=== PATIENT | male | born 1960 | race Caucasian/White ===

== ENCOUNTER 2023-10-05 11:59 | Outpatient (CLI) | payer MEDICAID ==
--- NOTE | 2023-10-06 08:04 | Ultrasound Report ---
PROCEDURE: Soft Tissue Head or Neck INDICATIONS: LYMPHOADENOPATHY TECHNIQUE: Real-time scanning was performed of the neck, with image documentation. COMPARISON: None FINDINGS: Right neck level 1 cervical lymph node measuring 2.9 x 2.7 x 2.3 cm. The node appears thickened with effacement of the fatty hilum. IMPRESSION: Abnormal right cervical lymph node measuring 2.[address] neck with IV contrast for further evaluation. Ultrasound-guided biopsy is also recomme nded. Reviewed by: Javan Gallagher MD on 10/06/2023 8:03 AM PDT Approved by: Javan Gallagher MD on 10/06/2023 8:03 AM PDT Station ID: [id number]
== END 2023-10-05 12:00 | disposition home or self-care (01) ==
LOC: DI 11:59
DX: R59.0 Localized enlarged lymph nodes (principal)

== ENCOUNTER 2023-10-07 06:20 | Emergency (ER) | payer MEDICAID ==
[2023-10-07 06:59] LABS: BASOPHILS # (AUTO) 0.1 10^3/uL (0.0-0.1); BASOPHILS % (AUTO) 1.1 %; EOSINOPHILS # (AUTO) 0.2 10^3/uL (0.0-0.7); EOSINOPHILS % (AUTO) 1.7 %; HCT - HEMATOCRIT 47.9 % (42.0-52.0); LYMPHOCYTES % (AUTO) 17.3 %; MEAN CORPUSCULAR HEMOGLOBIN 31.3 pg (27.0-31.0); MEAN CORPUSCULAR HGB CONC 33.4 g/dL (32.0-36.0); MEAN CORPUSCULAR VOLUME 93.6 fL (80.0-94.0); MEAN PLATELET VOLUME 9.7 fL (7.4-11.4); MONOCYTES # (AUTO) 0.5 10^3/uL (0.0-1.0); MONOCYTES % (AUTO) 4.2 %; NEUTROPHILS # (AUTO) 8.6 10^3/uL (1.5-6.6); NEUTROPHILS % (AUTO) 75.3 %; PLT - PLATELET COUNT 222 10^3/uL (130-450); RED BLOOD COUNT 5.12 10^6/uL (4.70-6.10); RED CELL DISTRIBUTION WIDTH 13.7 % (12.0-15.0); WHITE BLOOD COUNT 11.4 x10^3/uL (4.8-10.8)
[2023-10-07 07:08] LABS: ALBUMIN 3.4 g/dL (3.2-5.5); ALBUMIN/GLOBULIN RATIO 1.2 (1.0-2.2); BILIRUBIN,TOTAL 0.5 mg/dL (0.2-1.0); CALCIUM 8.3 mg/dL (8.5-10.3); CREATININE 0.9 mg/dL (0.6-1.3); POTASSIUM 3.9 mmol/L (3.5-4.5); TOTAL PROTEIN 6.2 g/dL (6.4-8.9)
--- NOTE | 2023-10-07 07:16 | ED Physician Documentation ---
PD HPI CHEST PAIN - Stated complaint Stated Complaint: PALPITATIONS - Chief complaint Chief Complaint: Cardiac - History obtained from History obtained from: Patient - Additional information Additional information: 62-year-old gentleman with history of coronary disease, stents x 2 and anxiety presents for the evaluation mostly for anxiety. He says bit for several months due to financial issues and a new job he gets intermittent chest pressure. It is not exertional, last 15 minutes at a time, and happen several times a day. He thinks his anxiety. It is not associated with shortness of breath, dizziness, sweats, nausea, pedal edema or calf pain. He is seeing a counselor but is currently lost to follow-up because his new work hours are basically the same hours as the counselor works and so he cannot really get an appointment. He denies SI or HI. He is taking Wellbutrin and started to that for in the last few days for this. He did drive here. PD PAST MEDICAL HISTORY - Past Medical History Past Medical History: Yes Cardiovascular: Coronary artery disease - Past Surgical History Past Surgical History: Yes - Present Medications Home Medications: Ambulatory Orders Medication Instructions Recorded Confirmed Atorvastatin Calcium 40 mg PO DAILY 10/07/23 10/07/23 Isosorbide Mononitrate [Isosorbide 30 mg PO DAILY 10/07/23 10/07/23 Mononitrate ER] LORazepam [Ativan] 1 mg PO TID PRN #12 tablet 10/07/23 Trazodone HCl 100 mg PO HS 10/07/23 10/07/23 buPROPion HCL [Bupropion Xl] 150 mg PO DAILY 10/07/23 10/07/23 hydrOXYzine PAMOATE [Vistaril] 25 mg PO HS 10/07/23 10/07/23 - Allergies Allergies/Adverse Reactions: Allergies Allergy/AdvReac Type Severity Reaction Status Date / Time No Known Drug Allergies Allergy Verified 10/07/23 06:29 - Social History Does the pt smoke?: No Smoking Status: Never smoker PD ED PE NORMAL - Vitals Vital signs reviewed: Yes - General General: Alert and oriented X 3, No acute distress - Cardiac Cardiac: RRR, Other (2 out of 6 decrescendo systolic murmur heard best at the left lower sternal border which is chronic per patient.) - Respiratory Respiratory: No respiratory distress, Clear bilaterally - Abdomen Abdomen: Non tender - Extremities Extremities: No edema, No calf tenderness / cord - Neuro Neuro: Alert and oriented X 3 - Psych Psych: Normal mood Results - Vitals Vitals: Vital Signs - 24 hr 10/07/23 10/07/23 10/07/23 06:26 06:29 06:58 Temperature 35.7 C L Heart Rate 80 71 71 Respiratory 18 14 Rate Blood Pressure 136/87 H 121/84 H O2 Saturation 99 96 Oxygen O2 Source Room air - EKG (time done) 0633 EKG releavant findings:: EKG personally interpreted by author of this note. Relevant findings are: Rate: Rate (enter#) (71) Rhythm: NSR Willard: Normal Intervals: Normal GA QRS: Normal Ischemia: Other (Inferior and anterior Q waves with mildly flipped T waves in the anterior leads, no priors for comparison) Computer interpretation: Agree with computer 0649 EKG releavant findings:: EKG personally interpreted by author of this note. Relevant findings are: Rate: Rate (enter#) (71) Rhythm: NSR Willard: Normal Intervals: Normal GA Ischemia: Non specific changes (No changes from EKG #1 with anterior and inferior Q waves and flipped T waves anteriorly) Computer interpretation: Agree with computer - Labs Labs: Laboratory Tests 10/07/23 10/07/23 10/07/23 06:44 06:44 06:44 WBC 11.4 H RBC 5.12 Hgb 16.0 Hct 47.9 MCV 93.6 MCH 31.3 H MCHC 33.4 RDW 13.7 Plt Count 222 MPV 9.7 Neut # (Auto) 8.6 H Lymph # (Auto) 2.0 Freeborn # (Auto) 0.5 Eos # (Auto) 0.2 Baso # (Auto) 0.1 Absolute Nucleated RBC 0.00 Nucleated RBC % 0.0 Sodium 136 Potassium 3.9 Chloride 107 Carbon Dioxide 23 Anion Gap 6.0 BUN 16 Creatinine 0.9 Estimated GFR (MDRD) 86 L Glucose 135 H Calcium 8.3 L Total Bilirubin 0.5 AST 13 ALT 12 Alkaline Phosphatase 81 Troponin I High Sens 14.1 Total Protein 6.2 L Albumin 3.4 Globulin 2.8 Albumin/Globulin Ratio 1.2 Lipase 30 PD Medical Decision Making - ED course ED course: 62-year-old gentleman presents with chest pressure that he thinks is anxiety. His initial EKG workup demonstrates a nonischemic EKG and negative troponin. CBC and CMP were generally unremarkable as well. He was amenable to social work consult as well as telepsychiatric consult. Telepsychiatric consult recommended basically outpatient follow-up without medication specific management. progress worker saw him and gave him several resources that he needed. Departure - Departure Disposition: Home, Self Care Clinical Impression: Atypical chest pain, Anxiety Condition: Good Record reviewed to determine appropriate education?: Yes Instructions: ED Panic Attack Prescriptions: LORazepam [Ativan] 1 mg PO TID PRN #12 tablet PRN Reason: Anxiety Comments: I sent your prescription electronically to the [facility] in [place]. When you take that medication do not drink or drive with it. Use the resources given to you by the outreach and education social worker to follow-up with psychiatry, counselors, legal advice etc. Return for new or worsening symptoms. Reasonable to follow-up with your director of special services in a few days as already planned. Forms: PCP List, Activity restrictions
--- NOTE | 2023-10-07 08:04 | XRAY Report ---
PROCEDURE: Chest 1V INDICATIONS: chest pain TECHNIQUE: One view of the chest was acquired. COMPARISON: None. FINDINGS: Surgical changes and devices: None. Lungs and pleura: No pleural effusions or pneumothorax. Lungs are clear. Mediastinum: Mediastinal contours appear normal. Mild cardiomegaly. Bones and chest wall: No suspicious bony lesions. Overlying soft tissues appear unremarkable. IMPRESSION: Mild cardiomegaly. No gross infiltrates. Findings are concordant with preliminary interpretation provided by [facility]. Reviewed by: Daniel Polanco MD on 10/07/2023 8:03 AM PDT Approved by: Daniel Polanco MD on 10/07/2023 8:03 AM PDT Station ID: [id number]
--- NOTE | 2023-10-07 08:23 | TELEPSYCH PHYS NOTE ---
[facility] Telepsych Consult Consult Date: 10/07/23 Name of Referring Provider:: Dr. Norton Reason for Consult: Anxiety/Depression - Suicide Risk Sreening (ASQ Tool) In the past few weeks, have you wished you were ?: No In the past few weeks, have you felt that you or your family would be better off if you were ?: No In the past week, have you been having thoughts about killing yourself?: No Have you ever tried to kill yourself?: No - Assessment Language: Austrian Transportation Maintenance Operator Required: No Cultural, Latter-Day or Spiritual Preferences: None identified Notes: I spoke with the ED provider. Patient reports today with chest pain to the ED. It's felt that the pain is due to anxiety. He has been medically cleared. Chief Complaint: I spoke with the ED provider. He reports that José Luis came in due to chest pain. He's medically cleared and there is no obvious physical cause for his chest pain so we are being consulted for evaluation and treatment. History of Present Illness: 62 year old male with history of anxiety, panic attacks, and depression presents today for psychiatric evaluation. He reports that since his ND in 2012, he has had anxiety, panic attacks and depression. He endorses trouble concentrating. He lost his job about 6 months ago. He has had 2 panic attacks a week, sometimes more, since 2012. His therapist has been working with him to get his anxiety under enough control to return to work. He has returned to work, but he's not performing well. He would like to stop working as work is causing too much stress. He is thinking about going on disability or if possible, 'paid' FMLA. He has no other source of income, but feels that not having an income is less stressful than working at this time. Sleep has been good. Appetite has been decreased. No UDS/BAL on record. He feels hopeless, but denies any suicidal thoughts. He denies any manic or psychotic symptoms. No drug or alcohol use. No history of suicide attempts. he does not have access to a firearm. He agrees to come to the ED should SI occur. Energy and motivation are poor. He is currently working as a maintenance techinician. He's renting a room from an elderly woman and this housing may cease to exist as she needs a live in person to care for her. He broke up with his girlfriend of 7 years several months ago due to her own mental health struggles. It does not sound as if there is a great support system. He denies any history of inpatient or outpatient psychiatric treatment. He was seeing a therapist and this was helpful, however, he has not been able to continue seeing her since he started working again due to schedule conflicts. He's actively seeking out a new therapist and he does have some leads. He was recently started on a new medication for anxiety by his PCP, he can't recall the name of it. He has had past psychiatric medication trials, but he's not sure what he's tried in the past. Suicide Ideation - Homicide Ideation - Self Harm: Denies SI/HI Family Psych History/ History of suicide: none - Medication & Allergies Home Medications: Ambulatory Orders Medication Instructions Recorded Confirmed Atorvastatin Calcium 40 mg PO DAILY 10/07/23 10/07/23 Isosorbide Mononitrate [Isosorbide 30 mg PO DAILY 10/07/23 10/07/23 Mononitrate ER] Trazodone HCl 100 mg PO HS 10/07/23 10/07/23 buPROPion HCL [Bupropion Xl] 150 mg PO DAILY 10/07/23 10/07/23 hydrOXYzine PAMOATE [Vistaril] 25 mg PO HS 10/07/23 10/07/23 Allergies/Adverse Reactions: Allergies Allergy/AdvReac Type Severity Reaction Status Date / Time No Known Drug Allergies Allergy Verified 10/07/23 06:29 - Drug & Alcohol History Does patient have Drug/ETOH history or addictive behavior?: No Use: Uses substance without health or social issues: NONE - Trauma Does the patient have a history of trauma, abuse, neglect or explotation?: No - Personal Information Does the patient have a history or present tendencies for violence?: None Does patient have any Legal Charges or Investigations?: No Environment & Living Situation - Social, Peer-Group (Note): At home - Medical History Cardiovascular: reports: Coronary artery disease - Mental Status Exam Appearance and Attire: casually groomed; attire not visible on camera; poor eye contact Attitude and Behavior: Cooperative Speech: Normal rate, volume and quantity Affect and Mood: Depressed and anxious mood; affect is depressed Association and Thought Process: slowed thought process at times; linear and organized Thought Content: denies SI/HI; no paranoia/delusions Perception: Denies AVH Sensorium, memory and orientation: alert and oriented x 3; memory seems somewhat impaired- it's not clear if this is due to recent panic attack, depression, or anxiety versus cognitive deficits. Intellectual - Cognitive functioning: average Insight and Judgement: intact/intact Emotional and Behavioral Functioning: no agitation Ability to Self-Care: WNL - Personal Goals Short-term Goals: Symptom alleviation; replace income with some sort of disability pay - Risk/Protective Factors Risk Factors: Trigger events leading to humiliation, shame and/or despair, Inadequate social supports Protective Factors / Internal: Fear of or the actual act of killing self, Identifies reasons for living Protective Factors / External: Engaged in work or school - Plan Impression/Risk Assessment: 62 year old with late onset of depression, anxiety, and panic attacks following a ND in 2012 presents today for evaluation. He is not suicidal, homicidal, manic or psychotic. Main complaints are anxiety, depression and panic attacks. He has been having at least panic attacks twice a week for the past several years. He is under the care of his PCP. He is seeking a new therapist. He is not meeting any criteria for inpatient psychiatric admission at this time. Treatment - Therapy Recommendations: Referral to outpatient psychiatry. He would benefit from a social media marketing specialist/case management consultation to advise him on social media editor in the community and he's not clear as to how to apply for disability. He should return to the ED with suicidal ideation or worsening symptoms. Please give him the [phone] crisis line number. Pharmacological Recommendations: He is not sure about what past medication trials he has had and he's not clear as to what medication he's currently taking. Discussed with him that when he meets with psychiatry, he will need to gather this information. He will follow up with his PCP as a new medication for anxiety was just started. - Time Spent & Provider Location Telepsych consultation conducted via videoconferencing: Yes (2 way audio visual communication) List names and roles of persons who participated in consult: Claudette Jackson APRN; José Luis Patricia (patient) Telepsych Provider Location: Home office Time Spent (Minutes): 55
[2023-10-07 10:02] VITALS: BP 136/81; O2SAT 98
== END 2023-10-07 09:55 | disposition home or self-care (01) ==
LOC: ED 06:20
DX: R07.89 Other chest pain (principal); F41.9 Anxiety disorder, unspecified; I25.10 Atherosclerotic heart disease of native coronary artery without angina pectoris; Z79.899 Other long term (current) drug therapy; J39.2 Other diseases of pharynx; C77.0 Secondary and unspecified malignant neoplasm of lymph nodes of head, face and neck
CPT/HCPCS: 36415; 70491; 71045; 80053; 83690; 84484; 85025; 93005; 99284; Q3014; Q9967

== ENCOUNTER 2023-10-07 17:49 | Outpatient (CLI) | payer MEDICAID ==
[2023-10-07] MEDS ORDERED: iohexoL-300 100 ML VIAL ONE (17:52)
[2023-10-07] MEDS: iohexoL-300 100 ML VIAL IVP ONE (18:13)
--- NOTE | 2023-10-07 19:01 | CT Report ---
PROCEDURE: Soft Tissue Neck W INDICATIONS: LYMPHADENOPATHY CONTRAST: 100ml [id number] TECHNIQUE: After the administration of intravenous contrast, 3.0 mm axial sections acquired from the sella to th e aortic arch. Additional oblique axial 3.0 mm sections acquired through the pharynx. 3 mm thick co gerhard reformats were generated. For radiation dose reduction, the following was used: automated exp osure control, adjustment of mA and/or kV according to patient size. COMPARISON: 10/05/2023 ultrasound FINDINGS: Image quality: Diagnostic Brain: Mild to moderate volume loss, partially visualized Orbits: Unremarkable Mouth and pharynx: Enhancing right tonsillar/pharyngeal mass measures 3.1 x 2.4 cm. A portion of the mass may cross the midline. There is narrowing of the pharynx in this region. Sequelae of dental disease Airway: Otherwise patent at the lower pharynx and at the level of the cords Neck spaces: Abnormal lymph node corresponding sonographic finding measuring 2.2 cm just anterior to the SCM and jugular vein Glands: Unremarkable Vessels: Atherosclerotic calcifications are present. No complete occlusion seen Upper chest: No apical pneumothorax. 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 The lymph nodes amenable to biopsy if necessary. The airway at the level of the mass in the oropharynx is narrowed. Reviewed by: Tad Sutton MD on 10/07/2023 7:00 PM PDT Approved by: Tad Sutton MD on 10/07/2023 7:00 PM PDT Station ID: [id number]
== END 2023-10-07 17:50 | disposition home or self-care (01) ==
LOC: DI 17:49
DX: J39.2 Other diseases of pharynx (principal); C77.0 Secondary and unspecified malignant neoplasm of lymph nodes of head, face and neck